=== PATIENT | male | born 1960 | race Caucasian/White ===

== ENCOUNTER 2025-04-30 16:16 | Emergency (ER) | payer MEDICARE, SELFPAY ==
[2025-04-30 16:19] VITALS: BP 166/78; PULSE 71; RESP 19; TEMP 36.8; O2SAT 95; BMI 28.3
[2025-04-30 16:25] VITALS: PULSE 80; RESP 18; O2SAT 99; BMI 26.8
[2025-04-30 16:31] VITALS: BP 166/83; PULSE 70; RESP 18; TEMP 36.7; O2SAT 96
[2025-04-30 17:01] LABS: Basophils # (Auto) 0.1 Thou/mm3 (0.0-0.2); Basophils % (Auto) 1 % (0-2.5); Eosinophils # (Auto) 0.1 Thou/mm3 (0.0-0.5); Eosinophils % (Auto) 1 % (0-10); Hematocrit 42.7 % (41.0-53.0); Hemoglobin 14.7 g/dL (13.5-16.0); Immature Granulocytes Auto 0.02 Thou/mm3 (0.00-0.00); Lymphocytes # (Auto) 2.0 Thou/mm3 (1.0-4.8); Lymphocytes % (Auto) 20 % (10-50); Mean Corpuscular HGB Conc 34.4 g/dl (31.0-37.0); Mean Corpuscular Hemoglobin 31.1 pg (25.0-35.0); Mean Corpuscular Volume 91 fL (80-100); Monocytes # (Auto) 0.7 Thou/mm3 (0.0-0.8); Monocytes % (Auto) 7 % (0-12); Neutrophils # (Auto) 7.1 Thou/mm3 (1.8-7.7); Neutrophils % (Auto) 71 % (37-80); Nucleated Red Blood Cell # 0.00 Thou/mm3 (0.00-0.00); Nucleated Red Blood Cell % 0 /100 WBC (0); Platelet Count 185 Thou/mm3 (140-440); RDW Standard Deviation 48.1 fL (35.1-43.9); Red Blood Count 4.72 Miln/mm3 (4.50-5.90); White Blood Count 9.9 Thou/mm3 (3.8-10.6)
[2025-04-30 17:04] VITALS: BP 167/75; PULSE 66; RESP 18; TEMP 36.6; O2SAT 97
--- NOTE | 2025-04-30 17:14 | PD.EDPSYCH ---
ED Psych RME/HPI General Chief Complaint: Psychiatric Symptoms Stated Complaint: PSYCH Time Seen by Provider: 04/30/25 16:32 Arrival date/time: 04/30/25 16:16 Limitations: no limitations RME / HPI RME / HPI Narrative: DR. ZARCO MAIN ED EVALUATION: 65-year-old male with past medical history of hypothyroidism, schizophrenia, bipolar disorder, and hypertension presents to the Emergency Department [facility] from [facility], an adult mental rehabilitation facility in [place]. Per EMS, he was found having a bowel movement behind a trash can and destroying property. On arrival, he reports that he feels he is being denied freedom and proper care at his facility, expressing anger about the situation. He mentioned, I am Conservatee at [facility] and they are not allowing him to work and help people; also stated, they are denying access to my freedom . Related Data Home Medications ?Medication ?Instructions ?Recorded ?Confirmed acetaminophen 500 mg capsule 1,000 mg PO Q4H PRN pain 05/01/25 05/01/25 atorvastatin 40 mg tablet 40 mg PO QPM 05/01/25 05/01/25 bismuth subsalicylate 525 mg/15 mL 1,050 mg PO Q4H PRN diarrhea 05/01/25 05/01/25 oral suspension (Kaopectate Ex Str (bismuth ss)) calcium carbonate 500 mg PO BID PRN heartburn 05/01/25 05/01/25 cholecalciferol (vitamin D3) 50 2,000 unit PO QAM 05/01/25 05/01/25 mcg (2,000 unit) capsule (Vitamin D3) diazepam 10 mg tablet 10 mg PO .PM 05/01/25 05/01/25 ibuprofen 200 mg tablet 200 mg PO Q4H PRN pain 05/01/25 05/01/25 levothyroxine 100 mcg capsule 100 mcg PO .before breakfast 05/01/25 05/01/25 olanzapine 10 mg tablet 10 mg PO QPM 05/01/25 05/01/25 olanzapine 20 mg tablet 20 mg PO QPM 05/01/25 05/01/25 primidone 50 mg tablet 50 mg PO BID 05/01/25 05/01/25 quetiapine 25 mg tablet 25 mg PO TID PRN Severe agitation 05/01/25 05/01/25 risperidone 4 mg tablet 4 mg PO QPM 05/01/25 05/01/25 Allergies Allergy/AdvReac Type Severity Reaction Status Date / Time No Known Drug Allergies Allergy Verified 04/30/25 16:30 Review of Systems Review of Systems Systems Reviewed: All systems reviewed, normal except as documented Past Medical History Social History SMOKING STATUS: Current some day smoker SUBSTANCE LAST USED: unknown Past Medical History Comments PMH COMMENT: hypothyroidism, schizophrenia, bipolar disorder, and hypertension ED Exam General Limitations: Present no limitations General appearance: Present alert and in no apparent distress Head Head exam: Present atraumatic, normocephalic and normal inspection Eye Eye exam: Present normal appearance, PERRL and EOMI ENT ENT exam: Present normal exam, normal oropharynx and mucous membranes moist Neck Neck exam: Present normal inspection, full ROM and trachea midline Chest Chest inspection: Present normal inspection and symmetric chest wall rise Respiratory Respiratory exam: Present normal lung sounds bilaterally Cardiovascular Cardiovascular exam: Present regular rate and systolic murmur (2/6 systolic murmur auscultated at the left sternal border) Abdominal Exam Abdominal exam: Present soft and normal bowel sounds Extremities Exam Extremities exam: Present normal inspection and full ROM Back Exam Back exam: Present normal inspection and full ROM Neurological Exam Neurological exam: Present alert, oriented X3 and CN II-XII intact Psychiatric Psychiatric exam: Present normal affect and normal mood Skin Skin exam: Present warm, dry, intact and normal color Course Quality Measures none Orders Category Date Time Status 1799 [1799 Psychiatric Hold] NOW Care 04/30/25 19:45 Ordered Consult Rn New Grad NOW Care 04/30/25 17:16 Completed Referral Psych Eval Stat Cons 05/01/25 05:10 Active Diet Regular Diet 05/01/25 Breakfast Active Diet Regular Diet 05/01/25 Breakfast Completed Acetaminophen Stat Lab 04/30/25 16:52 Completed Alcohol, Blood Medical Stat Lab 04/30/25 16:52 Completed Basic Metabolic Panel Stat Lab 04/30/25 16:52 Completed CBC Stat Lab 04/30/25 16:52 Completed Drug Screen,Urine Stat Lab 04/30/25 16:50 Completed Liver Panel Stat Lab 04/30/25 16:52 Completed Magnesium Stat Lab 04/30/25 16:52 Completed Salicylate Stat Lab 04/30/25 16:52 Completed TSH [Thyroid Stimulating Hormone] Stat Lab 04/30/25 16:52 Completed Troponin I Stat Lab 04/30/25 16:52 Completed UA, C/S IF [Urinalysis, C/S if Indicated] Stat Lab 04/30/25 20:20 Completed Diazepam Inj [Valium Inj] Med 04/30/25 19:40 Discontinued 10 mg IM X1 ONE Diazepam [Valium] Med 05/01/25 22:18 Discontinued 10 mg PO X1 ONE DiphenhydrAMINE [Benadryl] Med 05/01/25 22:18 Discontinued 50 mg PO X1 ONE Haloperidol Lactate [Haldol Inj] Med 04/30/25 19:40 Discontinued 10 mg IM X1 ONE cloNIDine HCL [Catapres] Med 05/01/25 22:18 Discontinued 0.2 mg PO X1 ONE cloNIDine HCL [Catapres] Med 05/01/25 22:13 Discontinued 0.3 mg PO X1 ONE hydrALAZINE INJ [Apresoline Inj] Med 05/01/25 17:36 Discontinued 10 mg IM X1 ONE Special Diet Request Routine Oth 05/01/25 17:34 Active Vital Signs Vital signs: Vital Signs Temperature 98.2 F 04/30/25 16:19 Pulse Rate 71 04/30/25 16:19 Respiratory Rate 19 04/30/25 16:19 Blood Pressure 166/78 H 04/30/25 16:19 Pulse Oximetry (%) 95 04/30/25 16:19 Oxygen Delivery Method Room Air 04/30/25 16:19 Psych MDM Narrative MDM Narrative:: IKayla am scribing for and in the presence of Dr. Zarco. Patient data External records reviewed:: [facility] previous records and EMS form Clinical information provided by:: patient and EMS Social determinants that could affect healthcare access:: mental health Patient has the following chronic illnesses:: hypothyroidism, schizophrenia, bipolar disorder, and hypertension How is presenting disease/condition affected by chronic disease/condition?: exacerbated by Evaluation data The following diagnostics were reviewed and interpreted by me:: lab results Lab and/or radiology exams considered but not ordered:: none Interpretation Summary: Pending labs, patient signed out to Dr. Almonte. Medications / Prescriptions Medications or Prescriptions considered but not ordered:: none Medication administrations:: Medication Administration History Discontinued Medications Clonidine (Clonidine Hcl 0.1 Mg Tablet) 0.3 mg PO X1 ONE Stop: 05/01/25 22:14 Last Admin: 05/01/25 22:20 Dose: Not Given Documented By: JELLY Non-Admin Reason: Cancelled by Provider Clonidine (Clonidine Hcl 0.1 Mg Tablet) 0.2 mg PO X1 ONE Stop: 05/01/25 22:19 Last Admin: 05/01/25 22:24 Dose: 0.2 mg Documented By: JELLY Diazepam (Diazepam Inj 5 Mg/Ml Vial 2 Ml) 10 mg IM X1 ONE Stop: 04/30/25 19:41 Last Admin: 04/30/25 19:50 Dose: 10 mg Documented By: JELLY Diazepam (Diazepam 5 Mg Tablet) 10 mg PO X1 ONE Stop: 05/01/25 22:19 Last Admin: 05/01/25 22:24 Dose: 10 mg Documented By: JELLY Diphenhydramine HCl (Diphenhydramine 25 Mg Capsule) 50 mg PO X1 ONE Stop: 05/01/25 22:19 Last Admin: 05/01/25 22:24 Dose: 50 mg Documented By: JELLY Haloperidol Lactate (Haloperidol Lact Inj 5 Mg/Ml Vial) 10 mg IM X1 ONE Stop: 04/30/25 19:41 Last Admin: 04/30/25 19:50 Dose: 10 mg Documented By: JELLY Hydralazine HCl (Hydralazine Inj 20 Mg/Ml Vial) 10 mg IM X1 ONE Stop: 05/01/25 17:37 Last Admin: 05/01/25 17:42 Dose: 10 mg Documented By: ABELINO see above if any Consultations Consultation(s) initiated? (list below): No Diagnosis Psych Differential Diagnosis: other (Psychiatric decompensation, schizophrenia exacerbation, and bipolar disorder with agitation.) Most likely diagnosis given after review of the tests above:: No official diagnoses at this time, still pending diagnostic tests. Patient signout to the caustic cresylate shift superintendent provider. Admission Indicated Admission indicated?: not indicated Explain why admission is indicated or not indicated:: No final disposition plan at this time, still pending diagnostic tests. Patient signout to the caustic cresylate shift superintendent provider. Admission Request Was there a request for admission?: No Disposition Plan Disposition Plan: other (specify) (Pending labs, patient signed out to Dr. Almonte.) Discharge Plan Plan Patient Disposition: [facility] Prescriptions/Referrals Prescriptions/Med Rec: No Action acetaminophen 500 mg capsule 1,000 mg PO Q4H PRN (Reason: pain) Rx Instructions: do not exceed 3 doses quetiapine 25 mg tablet 25 mg PO TID PRN (Reason: Severe agitation) atorvastatin 40 mg tablet 40 mg PO QPM primidone 50 mg tablet 50 mg PO BID Rx Instructions: 1 at 8am and 1 at 8pm risperidone 4 mg tablet 4 mg PO QPM olanzapine 10 mg tablet 10 mg PO QPM ibuprofen 200 mg tablet 200 mg PO Q4H PRN (Reason: pain) Rx Instructions: do not exceed 4 doses /24 hours calcium carbonate 500 mg calcium (1,250 mg) tablet,chewable 500 mg PO BID PRN (Reason: heartburn) Rx Instructions: 2-4 tabs per day, do not exceed 4 tabs diazepam 10 mg tablet 10 mg PO .PM olanzapine 20 mg tablet 20 mg PO QPM Kaopectate Ex Str (bismuth ss) 525 mg/15 mL suspension 1,050 mg PO Q4H PRN (Reason: diarrhea) Rx Instructions: do not exceed 4 doses per 24 hrs cholecalciferol (vitamin D3) [Vitamin D3] 50 mcg (2,000 unit) capsule 2,000 unit PO QAM levothyroxine 100 mcg capsule 100 mcg PO .before breakfast Referrals: No Primary/Family,Physician [Primary Care Provider] - In 1 week Problem List Clinical Impression: Violent behavior Patient/Caregiver Discharge Instructions Print Language: Nepalese Stand Alone Forms: Bonnie Award Info., Patient Portal Info Letter
[2025-04-30 17:23] LABS: Acetaminophen < 2.0 mcg/mL (10.0-20.0); Alcohol, Blood Medical < 3.0 mg/dL (0-10.0); Anion Gap 8 (7-16); BUN/Creatinine Ratio 11 Ratio (12-20); Blood Urea Nitrogen 12 mg/dL (9-23); Calcium 9.6 mg/dL (8.3-10.6); Carbon Dioxide 31.2 mMol/L (20.0-31.0); Chloride 105 mMol/L (98-107); Creatinine (Component) 1.1 mg/dL (0.6-1.3); Estimated Creatinine Clearance 77.8 mL/min (>60); Glucose 68 mg/dL (74-106); Osmolality,Calculated 284 (275-295); Potassium 3.5 mMol/L (3.4-5.1); Salicylate < 3.0 mg/dL; Sodium 144 mMol/L (136-145); eGFR > 60 See Note
--- NOTE | 2025-04-30 17:47 | PC.CC ---
Box Annealer received information from charge nurse Sonya whom reported EMS had reported Pt was transported from [facility] [address], [facility] [phone]. EMS stated Staff reported Pt has had recent behaviors (defecating in trash can, verbal outburst). Staff reported they have contacted Crisis Team and [facility] earlier in the day and both denied being able to place Pt on a hold due to Pt not being a danger to self or others or GD. Staff reported they then decided to call EMS to have Pt transported to ER. Box Annealer contacted [facility] and spoke with Erica Bar [phone] whom confirm EMS reported and confirmed Pt has not made comments/plan/intent to be a danger to self or other or GD. Box Annealer confirmed Pt has just had behaviors no SI/HI/GD. Box Annealer advice staff, typewriter aligner will consult with Director Gabby Robles in order to confirm if Pt will need MHE. It is noted Pt is conserved in [facility] [phone]. Box Annealer consulted with Director Gabby Robles and received confirmation Pt will not need MHE - can be M/C and D/C back to designated facility [facility] [address], [facility] [phone].
[2025-04-30 17:50] LABS: Amphetamine/Methamp Scrn,U Negative (Negative); Barbiturate Screen,Urine Negative (Negative); Benzodiazepines Screen,Urine Positive (Negative); Benzoylecgonine Screen, Ur Negative (Negative); Fentanyl Screen,Urine Negative (Negative); Opiate Screen,Urine Negative (Negative); THC Screen,Urine Negative (Negative)
--- NOTE | 2025-04-30 18:25 | PD.EDADDENDU ---
Emergency Room Addendum <Zena Kpaadia - Last Filed: 05/01/25 04:50> Addendum Narrative: I took over the care from previous shift physician at 6 PM on 04/30/2025. See previous notes for complete H & P and ED course. I reviewed all diagnostic test results. Blood tests and urine tests Diagnoses include: Behavior concern. Treatment here included consult with psychiatric social worker. Patient on 1798. Pending Psych re-evaluation. Signed out to Dr. Rincon at 6 AM. Juve Almonte MD <Juve Almonte MD - Last Filed: 05/01/25 05:12> Addendum Narrative: I took over the care from previous shift physician at 6 PM on 04/30/2025. See previous notes for complete H & P and ED course. I reviewed all diagnostic test results. Due to threatening behavior to staff, verbally and physically, patient placed on 1798. Diagnoses include: Violent behavior Entered order for evaluation by our ED residential child care counselor. At 6 AM on 05/01/2025, the care of the patient was transferred to Dr. Rincon. Juve Almonte MD
--- NOTE | 2025-04-30 18:57 | PC.NURSE ---
[facility] called to notify tht patient is ready to be picked up , they states they will call back
[2025-04-30] MEDS: DIAZEPAM INJ 5 MG/ML VIAL 2 ML 10 MG IM (19:50)
[2025-04-30] MEDS: HALOPERIDOL LACT INJ 5 MG/ML VIAL 10 MG IM (19:50)
--- NOTE | 2025-04-30 20:02 | PC.NURSE ---
THIS RN ATTEMPTED TO UPDATE PT ON TRANSPORTATION APPROX 1929. PT STARTED TO RAISE VOICE AT RN AND CUSS AT RN. PT STATED YOU ARE NOT GOOD ENOUGH . PT CONTINUED TO YELL AT RN. REGIONAL HR MANAGER CALLED A KADEN FARIBA APPROX 1933. SECURITY ARRIVED AT BEDSIDE. PROVIDER DR. REEVES AT BEDSIDE ATTEMPTING TO TALK TO PT WITH NO LUCK. RN ATTEMPTED TO REDIRECT PT WITH NO LUCK. PT STOOD UP AND CONTINUED TO YELL AT STAFF. DR. REEVES PLACED PT ON A 1798 AFTER PT ATTEMPTED TO LEAVE ER. ORDERS FOR MEDS GIVEN. 1:1 SITTER PROVIDED. APPROX 1953 PT ATTEMPTED TO LEAVE ROOM AND KADEN LINK WAS CALLED AGAIN APPROX 1953. KADEN LINK WAS THEM CLEARED APPROX 1956. PT REFUSED TO ANSWER MOST OF RNS QUESTIONS FOR ASSESSMENT. PT REQUESTED FOOD. SANDWICH WAS GIVEN TO PT. PT REFUSED TO REMOVE CLOTHES. FRAME FIXER WAS NOTIFIED AND GAVE OKAY FOR PT TO KEEP CLOTHES. SECURITY SEARCHED PT. 1 TO 1 SITTER AT BEDSIDE
--- NOTE | 2025-04-30 20:18 | PC.NURSE ---
PT REFUSED XRAY. DR. REEVES NOTIFIED ABOUT SITUATION.
--- NOTE | 2025-04-30 20:22 | PC.NURSE ---
PT REFUSED CT SCAN. PROVIDER DR. REEVES WAS NOTIFIED
[2025-04-30 20:26] LABS: Collection Type, Urine Clean Catch; Squamous Epithelial Cell,Urine 0 /hpf (0-5)
[2025-04-30 20:33] LABS: Bilirubin,Urine Negative (Negative); Blood,Urine Negative (Negative); Clarity,Urine Clear (Clear/Hazy); Color,Urine Lt-Yellow (Lt Yel-Yel); Culture Indicated,Urine Not Indicated; Glucose, Urine Negative (Negative); Ketones,Urine Negative (Negative); Leukocyte Esterase,Urine Negative (Negative); Nitrite,Urine Negative (Negative); PH,Urine 7.0 (5.0-7.0); Protein,Urine Trace (Neg - Trace); RBC,Urine 3 /hpf (0-3); Specific Gravity,Urine 1.010 (1.001-1.035); Urobilinogen,Urine Negative mg/dL (0.0-1.0); WBC,Urine < 1 /hpf (0-5)
[2025-04-30 20:35] LABS: Alanine Aminotransferase 23 U/L (10-49); Albumin, Serum 4.6 gm/dL (3.4-4.8); Alkaline Phosphatase 92 U/L (46-116); Aspartate Amino Transferase 23 U/L (0-34); Bilirubin,Direct 0.2 mg/dL (0.0-0.3); Bilirubin,Total 0.6 mg/dL (0.3-1.2); Magnesium 2.3 mg/dL (1.6-2.6); Thyroid Stimulating Hormone 0.93 uIU/mL (0.55-4.78); Total Protein 6.4 gm/dL (5.7-8.2); Troponin I < 0.020 ng/mL (0.0-0.045)
[2025-05-01] VITALS (12 sets, daily range): BP systolic 156–190; BP diastolic 76–105; PULSE 55–82; RESP 15–21; TEMP 36.4–37; O2SAT 96–98
--- NOTE | 2025-05-01 02:05 | PC.NURSE ---
PT HAS REFUSED ALL VITAL SIGNS
--- NOTE | 2025-05-01 06:35 | PD.EDADDENDU ---
Emergency Room Addendum <Kayla Chow - Last Filed: 05/01/25 11:19> Addendum Narrative: 0600: Care assumed from Dr. Almonte, the previous shift emergency physician. Past medical, surgical, social and family history reviewed. Vitals and home medications reviewed. I will assume the care of the patient at this time, patient was placed on 1799 hold by previous provider due to violent behavior and now pending placement. Please refer to the emergency department record for history and examination from initial visit.? Patient is a 65-year-old male with medical history notable for bipolar disorder, hypothyroidism, schizophrenia that seen emergency department on a 1799 hold for aggressive behavior. Patient lives at a intermediate. Patient was evaluated by prior providers. Labs without any acute hematologic or significant metabolic abnormalities. Urinalysis without evidence of infection. Tylenol level not elevated, patient is positive for benzodiazepines otherwise drug screen negative. Salicylate level normal. Initially was cleared by social work however upon waiting for his ride back to his facility became verbally and physically aggressive requiring medications for management of his symptoms. Patient was placed on a hold again. CT scan ordered however patient declined. Patient is pending repeat evaluation by social work. Is medically cleared for evaluation. The patient was placed in ED observation care at 05/01/2025 at 0600 hours. The patient was placed in ED observation care pending mental health evaluation. Then, [facility] placed her on psychiatric hold and now on observation care because of undifferentiated decompensated behavioral health evaluation, no behavioral health bed available. The patients past medical history, social history, and family history were reviewed. The plan of care will include serial examinations. While in ED observation the patient will have access to water, food, and personal hygiene. If the patient takes home medication(s), they will be continued in ED observation. Physical exam by me shows patient under no acute distress at this time. 1005: [facility] placed the patient on a psychiatric hold pending placement. 1118: Patient refusing head CT and CXR, will cancel those tests. <del>XX:</del> <del>Patient</del> <del>has</del> <del>been</del> <del>accepted</del> <del>to</del> <del>XXX</del> <del>Behavioral</del> <del>Hospital.</del> <del>ETA</del> <del>is</del> <del>XX.</del> <del>xx:</del> <del>EMS</del> <del>here</del> <del>to</del> <del>pick</del> <del>the</del> <del>patient</del> <del>and</del> <del>transport</del> <del>to</del> <del>[facility] [facility]del> <del[facility]</del> <del>Hospital.</del> <del>ED</del> <del>observation</del> <del>care</del> <del>ended</del> <del>at</del> 05/01/2025 <del>at</del> <del>xx</del> <del>hours.</del> <Stephanie Rincon MD - Last Filed: 05/01/25 15:11> Addendum Narrative: 0600: Care assumed from Dr. Almonte, the previous shift emergency physician. Past medical, surgical, social and family history reviewed. Vitals and home medications reviewed. I will assume the care of the patient at this time, patient was placed on 1799 hold by previous provider due to violent behavior and now pending placement. Please refer to the emergency department record for history and examination from initial visit.? Patient is a 65-year-old male with medical history notable for bipolar disorder, hypothyroidism, schizophrenia that seen emergency department on a 1799 hold for aggressive behavior. Patient lives at a intermediate. Patient was evaluated by prior providers. Labs without any acute hematologic or significant metabolic abnormalities. Urinalysis without evidence of infection. Tylenol level not elevated, patient is positive for benzodiazepines otherwise drug screen negative. Salicylate level normal. Initially was cleared by social work however upon waiting for his ride back to his facility became verbally and physically aggressive requiring medications for management of his symptoms. Patient was placed on a hold again. CT scan ordered however patient declined. Patient is pending repeat evaluation by social work. Is medically cleared for evaluation. The patient was placed in ED observation care at 05/01/2025 at 0600 hours. The patient was placed in ED observation care pending mental health evaluation. Then, mental health placed her on psychiatric hold and now on observation care because of undifferentiated decompensated behavioral health evaluation, no behavioral health bed available. The patients past medical history, social history, and family history were reviewed. The plan of care will include serial examinations. While in ED observation the patient will have access to water, food, and personal hygiene. If the patient takes home medication(s), they will be continued in ED observation. Physical exam by me shows patient under no acute distress at this time. 1005: Mental health placed the patient on a psychiatric hold pending placement. 1118: Patient refusing head CT and CXR, will cancel those tests. Patient evaluated by criminal justice social worker, placed on a 5150. Patient is pending mental health placement. Will be signed out to oncoming team.
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
--- NOTE | 2025-05-01 11:18 | PC.NURSE ---
PATIENT IS ALERT AND ORIENTED, UP AMBULATING IN ROOM, STILL REFUSING CT AND XRAY. PER MD WILL CANCEL THESE TEST.
[2025-05-01] MEDS: hydrALAZINE INJ 20 MG/ML VIAL 10 MG IM (17:42)
--- NOTE | 2025-05-01 18:23 | PC.NURSE ---
Gave report to Willem at [facility], he stated that the admitting nurse wants pt's BP 170 or below. Next shift nurse will call back for a BP update. Pt recieved bp meds IM around 1744
[2025-05-01] MEDS: DIAZEPAM 5 MG TABLET 10 MG PO (22:24)
--- NOTE | 2025-05-02 08:38 | PC.CC ---
0838-ASW received a call from Cecilia from [facility] at the [facility], asking where the pt is at and if he was placed. ASW confirmed that pt was placed yesterday to [facility]'s at [address] [facility], [place]. [phone]. Cecilia stated she will f/u with [facility]. EOC.
== END 2025-05-01 22:30 ==
PROVIDERS: Emergency Medicine; Emergency Provider Family Medicine
DX: R45.6 Violent behavior (principal); E03.9 Hypothyroidism, unspecified; F20.9 Schizophrenia, unspecified; F31.9 Bipolar disorder, unspecified; I10 Essential (primary) hypertension; F17.210 Nicotine dependence, cigarettes, uncomplicated; Z75.1 Person awaiting admission to adequate facility elsewhere; Z79.890 Hormone replacement therapy; Z79.899 Other long term (current) drug therapy
CPT/HCPCS: 36415; 80048; 80076; 80307; 80320; 80329; 81001; 83735; 84443; 84484; 85025; 96127; 96372; 99284; J0360; J1630; J3360; A9270; G0480

== ENCOUNTER 2025-05-15 13:47 | Emergency (ER) | payer MEDICARE, SELFPAY ==
--- NOTE | 2025-05-15 13:57 | EDNOTE_ITS ---
<Statement entered by Margie Cruz MD - 05/17/25 16:02> As co-signing physician, I was present and available for consult prn. I concur with the plan and care as documented by the midlevel provider. ED General RME/HPI General Chief complaint: Psychiatric Symptoms Stated complaint: HOLD Time Seen by Provider: 05/15/25 13:56 Arrival date/time: 05/15/25 13:47 CC: Patient arrives to the ER via EMS on hold for aggressive behavior HPI patient, per EMS, was told empty trash to the facility where he resides, once outside he was reportedly damaging property around the area and promptly was placed on a hold. Patient currently is awake alert oriented times to person and place has no homicidal or suicidal thoughts. EMS report stable vital signs. Patient is supposedly reported to have caused damage to employee cars of the facility he is staying at Related Data Home Medications ?Medication ?Instructions ?Recorded ?Confirmed acetaminophen 500 mg capsule 1,000 mg PO Q4H PRN pain 05/01/25 05/01/25 atorvastatin 40 mg tablet 40 mg PO QPM 05/01/25 bismuth subsalicylate 525 mg/15 mL 1,050 mg PO Q4H PRN diarrhea 05/01/25 05/01/25 oral suspension (Kaopectate Ex Str (bismuth ss)) calcium carbonate 500 mg PO BID PRN heartburn 05/01/25 05/01/25 cholecalciferol (vitamin D3) 50 2,000 unit PO QAM 04/1205/01/25 mcg (2,000 unit) capsule (Vitamin D3) diazepam 10 mg tablet 10 mg PO .PM 05/01/25 ibuprofen 200 mg tablet 200 mg PO Q4H PRN pain 05/0105/01/25 levothyroxine 100 mcg capsule 100 mcg PO .before break fast 05/01/25 05/01/25 olanzapine 10 mg tablet 10 mg PO QPM 05/01/25 olanzapine 20 mg tablet 20 mg PO QPM 05/01/25 primidone 50 mg tablet 50 mg PO BID 05/01/25 quetiapine 25 mg tablet 25 mg PO TID PRN Severe agit ation 05/01/25 05/01/25 risperidone 4 mg tablet 4 mg PO QPM 05/01/25 5 Allergies Allergy/AdvReac Type Severity Reaction Status Date / Time No Known Drug Allergies Allergy Verified 04/30/25 16:30 Review of Systems Review of Systems Narrative Review of Systems: GEN: No fever, no chills, no weight loss EYES: No discharge, no visual changes, no pain HEENT: No ear pain, no congestion, no sore throat PULM: No shortness of breath, no cough, no congestion CV: No chest pain, no dyspnea on exertion, no palpitations GI: No nausea, no vomiting, no diarrhea, no pain, no constipation : No frequency, no urgency, no dysuria MUSC/SKEL: No joint pain, no back pain SKIN: No rash PSYCH: No hallucinations, no depression HEME/LYMPH: No easy bleeding or bruising tendencies NEURO: No weakness, no headache Past Medical History Past Medical History CARDIAC: Positive Hypertension; Negative Congestive Heart Failure RESPIRATORY: Negative Chronic Obstructive Pulmonary Disease (COPD) GENITOURINARY: Negative Renal Disease ENDOCRINE: Positive Hypothyroidism; Negative Diabetes Mellitus Type 1 or Diabetes Mellitus Type 2 PSYCHO/SOCIAL: Positive Schizophrenia and Bipolar Disorder Social History SMOKING STATUS: Current some day smoker ED Exam Narrative Physical exam: [General: Obese not in cot no acute distress Head normocephalic HEENT: Within acceptable limits Neck is supple nontender Chest equal chest rise nontender to palpation Respiratory: Clear to auscultation no wheezes crackles or rubs CV: Rate rhythm is regular no murmurs rubs or clicks Abdomen is distended secondary to body habitus soft nontender no masses positive bowel sounds all 4 quadrants Back: No CVA tenderness no spinous process tenderness from cervical spine thoracic and lumbar spine Skin: Intact no petechiae rash induration ulceration or crepitus Extremities: Moving all extremity against resistance cap refill less than 2 seconds neurosensory intact Neuro: Awake alert oriented x3 Glascow coma 15 no focal deficits] Psych: Denies suicidal homicidal ideation. Course Course Course Narrative: Cleared for psych eval Quality Measures none Orders Category Date Time Status Diet Regular Diet 05/15/25 Dinner Active Acetaminophen Stat Lab 05/16/25 00:00 Completed Alcohol, Urine Stat Lab 05/15/25 14:37 Completed CBC Stat Lab 05/15/25 14:48 Completed CMP [Comprehensive Metabolic Panel] Stat Lab 05/15/25 14:48 Completed Drug Screen,Urine Stat Lab 05/15/25 14:37 Completed Magnesium Stat Lab 05/16/25 00:00 Completed Salicylate Stat Lab 05/16/25 00:00 Completed TSH [Thyroid Stimulating Hormone] Stat Lab 05/16/25 00:00 Completed UA, C/S IF [Urinalysis, C/S if Indicated] Stat Lab 05/16/25 03:27 Completed Vital Signs Vital signs: Vital Signs Temperature 97.7 F 05/15/25 14:20 Pulse Rate 58 L 05/15/25 14:20 Respiratory Rate 18 05/15/25 14:20 Blood Pressure 157/92 H 05/15/25 14:20 Pulse Oximetry (%) 96 05/15/25 14:20 Oxygen Delivery Method Room Air 05/15/25 14:20 Discharge Plan Plan Patient Disposition: HOME (Self Care) Discharge Disposition comment: [facility] [place] Prescriptions/Referrals Prescriptions/Med Rec: No Action acetaminophen 500 mg capsule 1,000 mg PO Q4H PRN (Reason: pain) Rx Instructions: do not exceed 3 doses quetiapine 25 mg tablet 25 mg PO TID PRN (Reason: Severe agitation) atorvastatin 40 mg tablet 40 mg PO QPM primidone 50 mg tablet 50 mg PO BID Rx Instructions: 1 at 8am and 1 at 8pm risperidone 4 mg tablet 4 mg PO QPM olanzapine 10 mg tablet 10 mg PO QPM ibuprofen 200 mg tablet 200 mg PO Q4H PRN (Reason: pain) Rx Instructions: do not exceed 4 doses /24 hours calcium carbonate 500 mg calcium (1,250 mg) tablet,chewable 500 mg PO BID PRN (Reason: heartburn) Rx Instructions: 2-4 tabs per day, do not exceed 4 tabs diazepam 10 mg tablet 10 mg PO .PM olanzapine 20 mg tablet 20 mg PO QPM Kaopectate Ex Str (bismuth ss) 525 mg/15 mL suspension 1,050 mg PO Q4H PRN (Reason: diarrhea) Rx Instructions: do not exceed 4 doses per 24 hrs cholecalciferol (vitamin D3) [Vitamin D3] 50 mcg (2,000 unit) capsule 2,000 unit PO QAM levothyroxine 100 mcg capsule 100 mcg PO .before breakfast Referrals: No Primary/Family,Physician [Primary Care Provider] - In 1 week Problem List Clinical Impression: Behavior disturbance Patient/Caregiver Discharge Instructions Print Language: Kazakh Stand Alone Forms: Bonnie Award Info., Patient Portal Info Letter MDM Chronic Illness/Social Conditions Explain: Schizophrenia, schizoaffective disorder. EKG EKG not done Labs Labs: interpreted by me Lab(s) Interpretation(s): CBC shows no acute leukocytosis anemia thrombocytopenia CMP shows no significant electrolyte imbalances renal impairment transaminitis or T. bili elevation UDS is positive for benzos.
[2025-05-15 14:20] VITALS: BP 157/92; PULSE 58; RESP 18; TEMP 36.5; O2SAT 96; BMI 25.7
[2025-05-15 14:43] VITALS: PULSE 67; RESP 18; O2SAT 96
[2025-05-15 15:01] LABS: Basophils # (Auto) 0.1 Thou/mm3 (0.0-0.2); Basophils % (Auto) 1 % (0-2.5); Eosinophils # (Auto) 0.2 Thou/mm3 (0.0-0.5); Eosinophils % (Auto) 2 % (0-10); Hematocrit 40.8 % (41.0-53.0); Hemoglobin 14.0 g/dL (13.5-16.0); Immature Granulocytes Auto 0.02 Thou/mm3 (0.00-0.00); Lymphocytes # (Auto) 1.5 Thou/mm3 (1.0-4.8); Lymphocytes % (Auto) 18 % (10-50); Mean Corpuscular HGB Conc 34.3 g/dl (31.0-37.0); Mean Corpuscular Hemoglobin 31.0 pg (25.0-35.0); Mean Corpuscular Volume 90 fL (80-100); Monocytes # (Auto) 0.4 Thou/mm3 (0.0-0.8); Monocytes % (Auto) 5 % (0-12); Neutrophils # (Auto) 5.8 Thou/mm3 (1.8-7.7); Neutrophils % (Auto) 73 % (37-80); Nucleated Red Blood Cell # 0.00 Thou/mm3 (0.00-0.00); Nucleated Red Blood Cell % 0 /100 WBC (0); Platelet Count 193 Thou/mm3 (140-440); RDW Standard Deviation 47.0 fL (35.1-43.9); Red Blood Count 4.52 Miln/mm3 (4.50-5.90); White Blood Count 7.9 Thou/mm3 (3.8-10.6)
[2025-05-15 15:22] LABS: Alanine Aminotransferase 26 U/L (10-49); Albumin, Serum 4.3 gm/dL (3.4-4.8); Albumin/Globulin Ratio 2.5 (1.2-2.2); Alkaline Phosphatase 91 U/L (46-116); Anion Gap 8 (7-16); Aspartate Amino Transferase 30 U/L (0-34); BUN/Creatinine Ratio 9 Ratio (12-20); Bilirubin,Total 0.6 mg/dL (0.3-1.2); Blood Urea Nitrogen 9 mg/dL (9-23); Calcium 9.3 mg/dL (8.3-10.6); Calcium (Corrected) 9.3 mg/dL (8.5-10.1); Carbon Dioxide 30.2 mMol/L (20.0-31.0); Chloride 104 mMol/L (98-107); Creatinine (Component) 1.0 mg/dL (0.6-1.3); Estimated Creatinine Clearance 90.4 mL/min (>60); Globulin 1.7 gm/dL (2.3-3.5); Glucose 97 mg/dL (74-106); Osmolality,Calculated 281 (275-295); Potassium 3.7 mMol/L (3.4-5.1); Sodium 142 mMol/L (136-145); Total Protein 6.0 gm/dL (5.7-8.2); eGFR > 60 See Note
[2025-05-15 15:40] LABS: Alcohol, Urine Negative (Negative); Amphetamine/Methamp Scrn,U Negative (Negative); Barbiturate Screen,Urine Negative (Negative); Benzodiazepines Screen,Urine Positive (Negative); Benzoylecgonine Screen, Ur Negative (Negative); Fentanyl Screen,Urine Negative (Negative); Opiate Screen,Urine Negative (Negative); THC Screen,Urine Negative (Negative)
[2025-05-15 18:07] VITALS: BP 170/84; PULSE 69; RESP 17; TEMP 36.7; O2SAT 99
[2025-05-16] VITALS (7 sets, daily range): BP systolic 139–184; BP diastolic 75–92; PULSE 55–67; RESP 16–20; TEMP 36.3–36.7; O2SAT 95–99
[2025-05-16 01:08] LABS: Acetaminophen < 2.0 mcg/mL (10.0-20.0); Magnesium 2.2 mg/dL (1.6-2.6); Salicylate < 3.0 mg/dL; Thyroid Stimulating Hormone 0.87 uIU/mL (0.55-4.78)
[2025-05-16 03:52] LABS: Collection Type, Urine Clean Catch; RBC,Urine 0 /hpf (0-3); Squamous Epithelial Cell,Urine 0 /hpf (0-5)
[2025-05-16 03:56] LABS: Bilirubin,Urine Negative (Negative); Blood,Urine Negative (Negative); Clarity,Urine Clear (Clear/Hazy); Color,Urine Colorless (Lt Yel-Yel); Culture Indicated,Urine Not Indicated; Glucose, Urine Negative (Negative); Ketones,Urine Negative (Negative); Leukocyte Esterase,Urine Negative (Negative); Nitrite,Urine Negative (Negative); PH,Urine 6.5 (5.0-7.0); Protein,Urine Negative (Neg - Trace); Specific Gravity,Urine 1.005 (1.001-1.035); Urobilinogen,Urine Negative mg/dL (0.0-1.0); WBC,Urine < 1 /hpf (0-5)
--- NOTE | 2025-05-16 07:21 | PD.EDADDENDU ---
Emergency Room Addendum <Margie Cruz MD - Last Filed: 05/16/25 07:21> Addendum Narrative: Assumed care of patient at change of shift. <Mounika Chin - Last Filed: 05/16/25 10:51> Addendum Narrative: 0600: Care assumed from Dr. Almonte, the previous shift emergency physician. Past medical, surgical, social and family history reviewed. Vitals and home medications reviewed. I will assume the care of the patient at this time, pending mental health evaluation. Please refer to the emergency department record for history and examination from initial visit.?The following addendum documentation note is intended to reflect any pending information, findings, or radiology results not included in the patient?s initial chart. Patient has been evaluated by social studies teacher who have rescinded the 5150 hold and cleared patient to go home. Patient has remained stable through ED course, will DC home.
--- NOTE | 2025-05-16 07:52 | PC.CC ---
0745-ASW Juan Jorge contacted Conservator Vasiliy Hudson [phone] (Public Guardian) to inform him that pt is present at the ER on a 5150 Hold DTS. The Hold 5150 goes as stated, Subject rambling making irrational statements from the world wide web. No other reports of Danger to Self reported on the hold. Per Vasiliy Hudson, he stated he is fine with whatever decision [facility] makes, as he stated, you guys are the professionals. ASW informed Vasiliy that the pt does not meet the criteria of DTS, DTO and/or Gravely disabled, so after staffing with my Director, Emili Trevizo, ASW will contact Humberto Franco, Supervisor Grounds of the [facility] and Conservator; Vasiliy understood. 4883-ASW contacted Humberto Thurston [phone] to provide an update of the assessment. Humberto stated that he does not agree with the assessment as pt is behavioral and delusional and stated that before the pt returns home, he would need to staff this with his psychiatric team.Humberto also stated that the conservator is very concerned about pts behavior and wants a thorough assessment. ASW informed Humberto that ASW just got off the phone with Vasiliy and is he fully aware of the process and both will be updated once a decision is made. ASW informed Humberto that they can do what he needs to do on their end, but once the pt does not meet criteria for a Hold, we will send him back to their facility. ASW informed Humberto that appeals writer will provide an update once our decision is made.
--- NOTE | 2025-05-16 08:41 | PC.CC ---
Addendum entered by Agnes Jorge 05/16/25 10:19: [id number]-ASW received a call from Missy, Psych Director from [facility] at the [facility] requesting that [facility] reconsider the decision on the hold, as per Missy, pt is a danger to staff as he damaged staff vehicles. Missy stated, We would love to have him back , but at this time we cannot have him and we are looking for placement for him. ASW again explained that legally we cannot keep the pt here as his hold has been rescinded and d/c has been created. ASW explained that pt is medically cleared and ready for return. Missy asked if we could at least keep him until tomorrow mornign and again, ASW stated we could not. 1000-ASW arranged transportation via [employer] and pt will transport to the facility at 1300. 1009-ASW contacted Missy to inform her of p/u ETA. 1013-ASW contacted Humberto to inform him of the p/u ETA. Original Note: [id number]-JCB-Oxcyhd Perez met with patient [id number] to complete assessment. ASW introduced self, role, and reason for assessment. ASW disclosed limits of confidentiality as well. Patient appeared alert and oriented to self, place, and situation. Patient was pleasant; his mood appeared calm; his behavior appeared disinhibited with flat affect. Patient?s thought process was linear and organized. No signs of delusions, paranoid or AVH. Pt reported that he is disrespected at the facility where he resides and does not want to live there anymore. Pt reports he has talked to his conservator many times about returning to [place], where pt is from, but is ignored. Pt reports that he was brought to [facility] because of being verbally aggressive with staff and threw a trash can at staff cars. Pt reports he was mad because of the way he is instructed to do things, with disrespect and rudely as per pt. Pt reports he understands that he could have handled the situation better, but was upset. Pt sukhwinder SI/HI, denies self harm. Pt reports he is consistent with medications as the facility where he resides administers his medications. Pt reports dx of schizoeffective, schizophrenia, bipolar. Pt is fully aware of his dxs and understands the reasons as to why he is in the facility. Pt states he is calm now and reports he will be willing to return to [facility] [place]. Pt reports he does not really want to be there but understands he must return as that is his home. Pts behavior at the ED was calm and cooperative. Pt was not administered medications while at the ED. Pt presented as cooperative present to time and place. ASW staffed this case with Director Emili Trevizo LCSW and it was determined that pt does not meet the criteria for DTS, as what was presented on the 5150 Hold. ASW informed ER provider Anthony and she agreed with the plan. ASW informed real estate rental agent and assigned RN and they are aware that the Hold will be rescinded and pt will return to his facility. ASW contacted Humberto Salvador [phone] to inform him that pt will return. Humberto stated that the pt cannot return back to the facility until pt is cleared by their psychiatric team. ASW informed Humberto that legally we cannot keep pt here as he is no longer on a 5150 Hold and he will be sent back to the facility. Humberto was adamant that pt must not return to the facility until he is cleared with their team first. ASW attempted many times to explain that since pts hold is rescinded, we cannot legally keep pt here and pt is discharged. Humberto requested to speak with Director Emili Trevizo, so ASW transferred the call to Emili Trevizo.
== END 2025-05-16 13:09 | disposition home or self-care (01) ==
PROVIDERS: Emergency Medicine; Registered Nurse General Practice; Emergency Provider Emergency Medicine
DX: F91.9 Conduct disorder, unspecified (principal)
CPT/HCPCS: 36415; 80053; 80307; 80320; 80329; 81001; 83735; 84443; 85025; 96127; 99283; G0480